=== PATIENT | female | born 1950 | race Caucasian/White ===

== ENCOUNTER 2020-05-14 11:59 | Emergency (ER) | payer MEDICARE ==
[2020-05-14] MEDS ORDERED: HYDROcodone/Acetaminophen 10/325 mg Tablet ONE (13:07)
--- NOTE | 2020-05-14 13:38 | RAD ---
LEFT HIP TWO VIEWS: 05/14/20 No fracture was seen. There was no dislocation. The joint space is normal in width. The adjacent pubi c ring appears intact. IMPRESSION: No acute finding. POS: HOME
--- NOTE | 2020-05-14 13:39 | RAD ---
RIGHT HIP TWO VIEWS: 05/14/20 Comparison is made with films of the left hip. No acute fracture or dislocation was seen. The adjacent pubic ring appears intact and the joint space is normal in width. IMPRESSION: No acute findings. POS: HOME
--- NOTE | 2020-05-14 13:40 | RAD ---
RIGHT KNEE FOUR VIEWS: 05/14/20 No acute fracture or joint effusion was seen. Severe osteoarthritis is present consisting of marked m edial joint space narrowing and osteophytes. Patellofemoral osteophytes are present as well. IMPRESSION: No acute findings. Severe osteoarthritis, primarily in the medial compartment. POS: HOME
[2020-05-14] MEDS ORDERED: Morphine 4 MG/ML VIAL ONE ×2 (17:03→17:23)
== END 2020-05-14 17:45 | disposition home or self-care (01) ==
LOC: BURERS 11:59
DX: S80.00XA Contusion of unspecified knee, initial encounter (principal); S70.00XA Contusion of unspecified hip, initial encounter; W06.XXXA Fall from bed, initial encounter
CPT/HCPCS: 96372; J2270